=== PATIENT | male | born 1995 | race Two or more races ===

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

== ENCOUNTER 2017-02-12 00:24 | Emergency (ER) | payer MEDICAID ==
[~2017-02-12] VITALS: Ht 175.3 cm; Wt 103.0 kg
[2017-02-12 01:18] VITALS: BP 123/50
--- NOTE | 2017-02-12 03:41 | NUR ---
DR. HUFFMAN AT BEDSIDE FOR EVAL.
== END 2017-02-12 04:00 | disposition home or self-care (01) ==
LOC: ER 00:27
DX: L60.0 Ingrowing nail (principal)
CPT/HCPCS: A4606; Z7610